=== PATIENT | female | born 1990 | race African-American/Black ===

== ENCOUNTER 2021-04-05 12:34 | Emergency (ER) | payer SELFPAY ==
[~2021-04-05] VITALS: Ht 182.9 cm; Wt 68.0 kg
[2021-04-05 12:36] VITALS: BP 148/78
[2021-04-05] MEDS ORDERED: OLANZAPINE 10 MG/VIAL IM ONE ×2 (12:45→13:00)
[2021-04-05] MEDS ORDERED: NALOXONE HCL 1 MG/ML 2ML VIAL IM ONE (12:45)
[2021-04-05] MEDS ORDERED: LORAZEPAM 2MG/ML CPJ IM ONE (13:00)
== END 2021-04-05 14:32 | disposition left against medical advice (07) ==
LOC: ER 12:44
DX: R46.2 Strange and inexplicable behavior (principal); J45.909 Unspecified asthma, uncomplicated; E11.9 Type 2 diabetes mellitus without complications
CPT/HCPCS: 96372; 99284; J2060; J3490